=== PATIENT | male | born 1970 | race Caucasian/White ===

== ENCOUNTER 2016-10-03 12:16 | Emergency (ER) | payer MEDICARE ==
[2016-10-03 12:27] VITALS: RESP 14; TEMP 98; O2SAT 100
--- NOTE | 2016-10-03 12:37 | ED PDOC ---
HPI: General Adult Time Seen by Provider: 10/03/16 12:31 Chief Complaint (Nursing): Med Refill Chief Complaint (Provider): med refill History Per: Patient History/Exam Limitations: no limitations Additional Complaint(s): 46yo M in ED for Rx refill of Risperdone 2mg BID. states he ran out of medication appt with mental health on October 11. unable to sleep well at night. no hallucinations or SI Past Medical History Reviewed: Historical Data, Nursing Documentation, Vital Signs Vital Signs: Last Vital Signs Temp 98.0 F 10/03/16 12:24 Pulse 96 H 10/03/16 12:24 Resp 14 10/03/16 12:24 BP 160/88 H 10/03/16 12:24 Pulse Ox 100 10/03/16 12:24 - Medical History PMH: Bipolar Disorder, Depression - Surgical History Surgical History: Back Surgery, Cholecystectomy - Family History Family History: States: No Known Family Hx - Home Medications Home Medications: Ambulatory Orders Medication Instructions Recorded Gabapentin [Neurontin] 300 mg PO BID 05/27/15 Gabapentin [Neurontin] 300 mg PO BID #60 cap 05/27/15 Risperidone 1 mg PO BID #100 tab 05/27/15 Risperidone 3 mg PO DAILY 05/27/15 risperiDONE [RisperDAL] 2 mg PO DAILY 05/27/15 Sulfamethoxazole/Trimethoprim 1 tab PO BID #20 tab 08/17/15 [Bactrim DS 800 mg-160 mg] Risperidone 2 mg PO BID #16 tab 10/03/16 - Allergies Allergies/Adverse Reactions: Allergies Allergy/AdvReac Type Severity Reaction Status Date / Time No Known Allergies Allergy Verified 10/03/16 12:24 Review of Systems ROS Statement: Except As Marked, All Systems Reviewed And Found Negative Constitutional: Negative for: Fever Psych: Negative for: Anxiety, Depression, Psychosis, Suicidal ideation, Withdrawal Physical Exam - Reviewed Nursing Documentation Reviewed: Yes Vital Signs Reviewed: Yes - Physical Exam Appears: Positive for: Well, Non-toxic, No Acute Distress Head Exam: Positive for: ATRAUMATIC, NORMAL INSPECTION, NORMOCEPHALIC Skin: Positive for: Normal Color, Warm, DRY Eye Exam: Positive for: EOMI, Normal appearance, PERRL Cardiovascular/Chest: Positive for: Regular Rate, Rhythm Respiratory: Positive for: CNT, Normal Breath Sounds Neurologic/Psych: Positive for: Alert, Oriented - ECG O2 Sat by Pulse Oximetry: 100 Medical Decision Making Medical Decision Making: given given refill for Risperdone and given [facility] information for further pysch Rx refill Disposition - Clinical Impression Clinical Impression: Medication refill - Patient ED Disposition Is Patient to be Admitted: No Counseled Patient/Family Regarding: Need For Followup, Rx Given - Disposition Referrals: [facility] [Outside] Disposition: Routine/Home Disposition Time: 12:37 Condition: STABLE Prescriptions: Risperidone 2 mg PO BID #16 tab Instructions: Schizophrenia (ED)
[2016-10-03 13:26] VITALS: BP 149/83; PULSE 88
== END 2016-10-03 13:25 | disposition home or self-care (01) ==
LOC: H.ER 12:16
DX: Z76.0 Encounter for issue of repeat prescription (principal); F31.9 Bipolar disorder, unspecified